=== PATIENT | male | born 1970 | race Caucasian/White ===

== ENCOUNTER 2016-05-25 13:13 | Emergency (ER) | payer MEDICAID ==
[~2016-05-25] VITALS: Ht 167.6 cm; Wt 75.0 kg
[~2016-05-25 13:13] MED LIST: IBUP-232 PO
[2016-05-25 13:33] VITALS: BP 140/83; PULSE 96; RESP 20; TEMP 97.4; O2SAT 100
[2016-05-25 14:08] LABS: BLOOD UREA NITROGEN 8 MG/DL (7-18)
--- NOTE | 2016-05-25 14:08 | PD ---
HPI Chief Complaint: Seizure Time Seen by Provider: 14:08 Travel History International Travel<30 days: No Contact w/Intl Traveler<30days: No Traveled to known affect area: No History of Present Illness HPI 45-year-old male with no significant medical history presents to the emergency department for evaluation of a possible seizure. Patient has no history of seizure. States that he does not remember what happened. [facility] ambulance was contacted and patient initially was having seizure activity. He did bite his tongue. There is no loss of bowel or bladder. Patient states he does not know what happened. Denies any illicit drug use. Does not consume alcohol daily. States he has been under stress lately after quitting his job but other than that there is not anything new in his life. Denies any recent illnesses, fever, chills. Has no other symptoms to report. PFSH Past Medical History Medical History: Denies Significant Hx Diminished Hearing: No Tetanus Vaccination: > 5 Years Social History Alcohol Use: Yes (OCCASIONAL) Tobacco Use: Yes ( 1 PPD) Substance Use: No Allergies-Medications (Allergen,Severity, Reaction): Coded Allergies: No Known Allergies (Verified , 05/25/16) Reported Meds & Prescriptions Reported Meds & Active Scripts Active Motrin (Ibuprofen) 600 Mg Tab 600 Mg PO TID Review of Systems Except as stated in HPI: all other systems reviewed are Neg Physical Exam Narrative GENERAL: Well-nourished male patient, sitting in bed, in no acute distress. Patient is oriented to self and place but is unaware of the day. He cannot recall where his is employed. SKIN: Warm and dry. HEAD: Atraumatic. Normocephalic. EYES: Pupils equal and round. No scleral icterus. No injection or drainage. ENT: No nasal bleeding or discharge. Mucous membranes pink and moist. There is a bite shirley on the right lateral aspect of the tongue NECK: Trachea midline. No JVD. CARDIOVASCULAR: Regular rate and rhythm. No murmur appreciated. RESPIRATORY: No accessory muscle use. Clear to auscultation. Breath sounds equal bilaterally. GASTROINTESTINAL: Abdomen soft, non-tender, nondistended. Hepatic and splenic margins not palpable. MUSCULOSKELETAL: No obvious deformities. No clubbing. No cyanosis. No edema. NEUROLOGICAL: Awake and alert. No obvious cranial nerve deficits. Motor grossly within normal limits. Normal speech. PSYCHIATRIC: Appropriate mood and affect; insight and judgment normal. Data Data Last Documented VS Vital Signs Date Time Temp Pulse Resp B/P Pulse Ox O2 Delivery O2 Flow Rate FiO2 05/25/16 14:42 92 24 143/70 100 Room Air 05/25/16 13:33 97.4 Orders Blood Glucose (05/25/16 13:39) Oximetry (05/25/16 13:39) Iv Access Insert/Monitor (05/25/16 13:39) Complete Blood Count With Diff (05/25/16 13:54) Coag Profile (05/25/16 13:54) Ct Brain W/O Iv Contrast(Rout) (05/25/16 ) Chest, Single Ap (05/25/16 ) Comprehensive Metabolic Panel (05/25/16 13:45) Magnesium (Mg) (05/25/16 13:45) Labs Laboratory Tests Test 05/25/16 05/25/16 13:45 14:10 Sodium Level 133 MEQ/L Potassium Level 4.3 MEQ/L Chloride Level 96 MEQ/L Carbon Dioxide Level 24.6 MEQ/L Anion Gap 12 MEQ/L Blood Urea Nitrogen 8 MG/DL Creatinine 0.91 MG/DL Estimat Glomerular Filtration 91 ML/MIN Rate Random Glucose 92 MG/DL Calcium Level 8.9 MG/DL White Blood Count 9.4 TH/MM3 Red Blood Count 4.86 MIL/MM3 Hemoglobin 15.2 GM/DL Hematocrit 42.1 % Mean Corpuscular Volume 86.8 FL Mean Corpuscular Hemoglobin 31.2 PG Mean Corpuscular Hemoglobin 36.0 % Concent Red Cell Distribution Width 13.2 % Platelet Count 279 TH/MM3 Mean Platelet Volume 8.3 FL Neutrophils (%) (Auto) 77.6 % Lymphocytes (%) (Auto) 14.6 % Monocytes (%) (Auto) 4.1 % Eosinophils (%) (Auto) 3.0 % Basophils (%) (Auto) 0.7 % Neutrophils # (Auto) 7.3 TH/MM3 Lymphocytes # (Auto) 1.4 TH/MM3 Monocytes # (Auto) 0.4 TH/MM3 Eosinophils # (Auto) 0.3 TH/MM3 Basophils # (Auto) 0.1 TH/MM3 CBC Comment AUTO DIFF Prothrombin Time 10.7 SEC Prothromb Time International 1.0 RATIO Ratio Activated Partial 24.0 SEC Thromboplast Time MDM Medical Decision Making Medical Screen Exam Complete: Yes Emergency Medical Condition: Yes Medical Record Reviewed: Yes Differential Diagnosis Elected slight abnormality versus intracranial etiology versus new onset seizure versus withdrawal Narrative Course 45-year-old male presents to the emergency department for evaluation following a likely seizure. Patient was postictal upon arrival. Has no history of seizure activity. This initiated in triage ambulance hallway. Once a medical bed becomes available, patient will be transferred and care assumed that provider. Condition: Stable Yesica Yen May 25, 2016 14:08
[2016-05-25 14:09] LABS: ANION GAP 12 MEQ/L (5-15); BICARBONATE 24.6 MEQ/L (21.0-32.0); CHLORIDE 96 MEQ/L (98-107); GLOMERULAR FILTRATION RATE 91 ML/MIN (>89); POTASSIUM 4.3 MEQ/L (3.5-5.1); SODIUM (NA) 133 MEQ/L (136-145)
[2016-05-25 14:15] VITALS: O2SAT 99
--- NOTE | 2016-05-25 14:29 | RADRPT ---
EXAM DATE/TIME: 05/25/2016 14:17 [facility] COMPARISON: No previous studies available for comparison. INDICATIONS : Seizure. Altered mental status. RADIATION DOSE: 39.56 CTDIvol (mGy) MEDICAL HISTORY : None SURGICAL HISTORY : None. ENCOUNTER: Initial ACUITY: 1 day PAIN SCALE: 0/10 LOCATION: cranial TECHNIQUE: Multiple contiguous axial images were obtained of the head. Using automated exposure control and adj ustment of the mA and/or kV according to patient size, radiation dose was kept as low as reasonably a chievable to obtain optimal diagnostic quality images. FINDINGS: CEREBRUM: The ventricles are normal for age. No evidence of midline shift, mass lesion, hemorrhage or acute in farction. No extra-axial fluid collections are seen. POSTERIOR FOSSA: The cerebellum and brainstem are intact. The 4th ventricle is midline. The cerebellopontine angle i s unremarkable. EXTRACRANIAL: The visualized portion of the orbits is intact. There is scattered increased density in the ethmoid s inuses. SKULL: The calvaria is intact. No evidence of skull fracture. CONCLUSION: No acute intracranial disease. Gabe Dunbar MD on May 25, 2016 at 14:26 Board Certified Radiologist. This report was verified electronically.
[2016-05-25 14:33] LABS: AUTOMATED NEUTROPHIL # 7.3 TH/MM3 (1.8-7.7); BASOPHIL # 0.1 TH/MM3 (0-0.2); BASOPHIL % 0.7 % (0.0-2.0); EOSINOPHIL # 0.3 TH/MM3 (0-0.4); HEMATOCRIT 42.1 % (39.0-51.0); LYMPH % 14.6 % (9.0-44.0); LYMPHOCYTE # 1.4 TH/MM3 (1.0-4.8); MEAN CELL VOLUME 86.8 FL (80.0-100.0); MEAN CORPUSCULAR HEMOGLOBIN 31.2 PG (27.0-34.0); MONO % 4.1 % (0.0-8.0); NEUT % 77.6 % (16.0-70.0); PLATELET COUNT 279 TH/MM3 (150-450); RED BLOOD COUNT 4.86 MIL/MM3 (4.50-5.90); RED CELL DISTRIBUTION WIDTH 13.2 % (11.6-17.2); WHITE BLOOD COUNT 9.4 TH/MM3 (4.0-11.0)
[2016-05-25 14:34] LABS: HEMO FLAGS AUTO DIFF
[2016-05-25 14:35] LABS: PROTHROMBIN TIME - PATIENT 10.7 SEC (9.8-11.6)
[2016-05-25 14:42] VITALS: BP 143/70; PULSE 92; RESP 24; O2SAT 100
--- NOTE | 2016-05-25 14:48 | RADRPT ---
EXAM DATE/TIME: 05/25/2016 14:26 [facility] COMPARISON: No previous studies available for comparison. INDICATIONS : Seizure MEDICAL HISTORY : None. SURGICAL HISTORY : None. ENCOUNTER: Initial ACUITY: 1 day PAIN SCORE: 2/10 LOCATION: Bilateral chest FINDINGS: A single view of the chest demonstrates the lungs to be symmetrically aerated without evidence of mas s, infiltrate or effusion. The cardiomediastinal contours are unremarkable. Osseous structures are intact. CONCLUSION: No acute disease. Demetrio Carr MD on May 25, 2016 at 14:46 Board Certified Radiologist. This report was verified electronically.
[2016-05-25 14:50] LABS: ALT (GPT) 28 U/L (12-78); AST (GOT) 21 U/L (15-37); MAGNESIUM 1.7 MG/DL (1.5-2.5)
[2016-05-25 14:51] LABS: ALKALINE PHOSPHATASE 73 U/L (45-117); TOTAL BILIRUBIN ADULT 0.5 MG/DL (0.2-1.0)
[2016-05-25 15:23] LABS: KERATOCYTES OCC (NORMAL); PLATELET ESTIMATE SMEAR NORMAL (NORMAL); PLATELET MORPHOLOGY NORMAL (NORMAL); SCAN/DIFF AUTO DIFF CONFIRMED
[2016-05-25 15:28] LABS: AMPHETAMINE, URINE POS (NEG); BARBITURATES, URINE NEG (NEG); COCAINE, URINE POS (NEG)
--- NOTE | 2016-05-25 15:42 | RADRPT ---
EXAM DATE/TIME: 05/25/2016 15:09 [facility] COMPARISON: No previous studies available for comparison. INDICATIONS : Had seizure today and has severe left shoulder pain, no prior injury to left shoulder MEDICAL HISTORY : seizure today SURGICAL HISTORY : None. ENCOUNTER: Initial ACUITY: 1 day PAIN SCORE: 10/10 LOCATION: Left shoulder FINDINGS: Two view examination of the left shoulder demonstrates no evidence of fracture or dislocation. The g lenohumeral and acromioclavicular joints are maintained. Bony mineralization is normal. CONCLUSION: No acute disease. Demetrio Carr MD on May 25, 2016 at 15:40 Board Certified Radiologist. This report was verified electronically.
--- NOTE | 2016-05-25 16:55 | PD ---
Physical Exam Narrative Patient was seen by my parts room assistant and signed out to me. Data Data Last Documented VS Vital Signs Date Time Temp Pulse Resp B/P Pulse Ox O2 Delivery O2 Flow Rate FiO2 05/25/16 14:42 92 24 143/70 100 Room Air 05/25/16 13:33 97.4 Orders Blood Glucose (05/25/16 13:39) Oximetry (05/25/16 13:39) Iv Access Insert/Monitor (05/25/16 13:39) Complete Blood Count With Diff (05/25/16 13:54) Coag Profile (05/25/16 13:54) Ct Brain W/O Iv Contrast(Rout) (05/25/16 ) Chest, Single Ap (05/25/16 ) Comprehensive Metabolic Panel (05/25/16 13:45) Magnesium (Mg) (05/25/16 13:45) Shoulder, Limited(2vws) (05/25/16 14:47) Drug Screen, Random Urine (05/25/16 14:49) Alcohol (Ethanol) (05/25/16 14:49) Labs Laboratory Tests Test 05/25/16 05/25/16 05/25/16 13:45 14:10 15:00 Sodium Level 133 MEQ/L Potassium Level 4.3 MEQ/L Chloride Level 96 MEQ/L Carbon Dioxide Level 24.6 MEQ/L Anion Gap 12 MEQ/L Blood Urea Nitrogen 8 MG/DL Creatinine 0.91 MG/DL Estimat Glomerular Filtration 91 ML/MIN Rate Random Glucose 92 MG/DL Calcium Level 8.9 MG/DL Magnesium Level 1.7 MG/DL Total Bilirubin 0.5 MG/DL Aspartate Amino Transf 21 U/L (AST/SGOT) Alanine Aminotransferase 28 U/L (ALT/SGPT) Alkaline Phosphatase 73 U/L Total Protein 6.8 GM/DL Albumin 4.0 GM/DL Ethyl Alcohol Level LESS THAN 3 MG/DL White Blood Count 9.4 TH/MM3 Red Blood Count 4.86 MIL/MM3 Hemoglobin 15.2 GM/DL Hematocrit 42.1 % Mean Corpuscular Volume 86.8 FL Mean Corpuscular Hemoglobin 31.2 PG Mean Corpuscular Hemoglobin 36.0 % Concent Red Cell Distribution Width 13.2 % Platelet Count 279 TH/MM3 Mean Platelet Volume 8.3 FL Neutrophils (%) (Auto) 77.6 % Lymphocytes (%) (Auto) 14.6 % Monocytes (%) (Auto) 4.1 % Eosinophils (%) (Auto) 3.0 % Basophils (%) (Auto) 0.7 % Neutrophils # (Auto) 7.3 TH/MM3 Lymphocytes # (Auto) 1.4 TH/MM3 Monocytes # (Auto) 0.4 TH/MM3 Eosinophils # (Auto) 0.3 TH/MM3 Basophils # (Auto) 0.1 TH/MM3 CBC Comment AUTO DIFF Differential Comment AUTO DIFF CONFIRMED Platelet Estimate NORMAL Platelet Morphology Comment NORMAL Keratocytes OCC Prothrombin Time 10.7 SEC Prothromb Time International 1.0 RATIO Ratio Activated Partial 24.0 SEC Thromboplast Time Urine Opiates Screen NEG Urine Barbiturates Screen NEG Urine Amphetamines Screen POS Urine Benzodiazepines Screen NEG Urine Cocaine Screen POS Urine Cannabinoids Screen NEG MDM Supervised Visit with TERRELL: Yes Interpretation(s) 1649 PM. X-ray left shoulder show no acute bony injury. Chest x-ray no show acute process. CT of the brain negative acute pathology. CBC within normal limit. CMP within normal limit. Sodium 133. Urine drug screen positive for amphetamine and cocaine. Alcohol negative. Diagnosis Primary Impression: Substance induced mood disorder Additional Impression: Left shoulder strain Qualified Code: S46.912A - Left shoulder strain, initial encounter Patient Instructions: General Instructions Additional Instruction: Advised [facility]. Advil Tylenol for shoulder pain. Med/Other Pt SpecificInfo: No Meds Exist/No RX given Disposition: 01 DISCHARGE HOME Condition: Stable Romeo Christianson MD May 25, 2016 16:55
[2016-05-25 17:30] VITALS: BP 128/76; TEMP 98.2
== END 2016-05-25 17:30 | disposition home or self-care (01) ==
LOC: NEPA 13:13
DX: S46.912A Strain of unspecified muscle, fascia and tendon at shoulder and upper arm level, left arm, initial encounter (principal); F17.210 Nicotine dependence, cigarettes, uncomplicated; F19.94 Other psychoactive substance use, unspecified with psychoactive substance-induced mood disorder; X58.XXXA Exposure to other specified factors, initial encounter
CPT/HCPCS: 70450; 71010; 73030; 80053; 80307; 83735; 85025; 85610; 85730